=== PATIENT | female | born 1940 | race Hispanic/Latino ===

== ENCOUNTER 2018-05-13 11:17 | Observation (INO) | payer MEDICARE, MEDICAID ==
--- NOTE | 2018-05-13 11:39 | ED PDOC ---
Arrival/HPI - General Chief Complaint: Chest Pain Time Seen by Provider: 05/13/18 11:18 Historian: Patient - History of Present Illness Narrative History of Present Illness (Text): 05/13/18 11:43 77 year old female, whose past medical history includes hypertension, presents for evaluation of worsening chest pain for over the last week. Patient reports it is getting worse in the last 48 hours. She describes the pain as a midsternal pressure. Patient is reportedly due to see process controls technician as outpatient on Monday. Patient denies any fever, chills, shortness of breath, nausea, vomiting, diarrhea, urinary symptoms, back pain, neck pain, headache, dizziness, or any other complaints. PMD: Dr. Hank Angeles Time/Duration: 1 week Symptom Onset: Gradual Symptom Course: Worsening Activities at Onset: Light Context: Home Past Medical History - Provider Review Nursing Documentation Reviewed: Yes - Infectious Disease Hx of Infectious Diseases: None - Reproductive Menopause: Yes - Cardiac Hx Cardiac Disorders: Yes Hx Hypertension: Yes Hx Mitral Valve Prolapse: Yes - Pulmonary Hx Respiratory Disorders: No - Psychiatric Hx Substance Use: No - Anesthesia Hx Anesthesia: No Hx Anesthesia Reactions: No Family/Social History - Physician Review Nursing Documentation Reviewed: Yes Family/Social History: No Known Family HX Smoking Status: Unknown If Ever Smoked Hx Alcohol Use: No Hx Substance Use: No Allergies/Home Meds Allergies/Adverse Reactions: Allergies No Known Allergies Allergy (Unverified 05/13/18 11:31) Home Medications: Home Meds Medication Instructions Recorded Confirmed RX: Omeprazole 40 mg PO DAILY 05/13/18 05/13/18 amLODIPine [Norvasc] 10 mg PO DAILY 05/13/18 05/13/18 Review of Systems - Physician Review All systems were reviewed & negative as marked: Yes - Review of Systems Constitutional: absent: Fevers, Other (chills) Respiratory: absent: SOB Cardiovascular: Chest Pain Gastrointestinal: absent: Diarrhea, Nausea, Vomiting Genitourinary Female: absent: Dysuria, Frequency, Hematuria Musculoskeletal: absent: Back Pain, Neck Pain Neurological: absent: Headache, Dizziness Physical Exam Vital Signs Reviewed: Yes Vital Signs Temp Pulse Resp BP Pulse Ox 05/13/18 11:26 98.1 F 72 18 142/62 97 Temperature: Afebrile Blood Pressure: Normal Pulse: Regular Respiratory Rate: Normal Appearance: Positive for: Well-Appearing, Non-Toxic, Comfortable Pain Distress: None Mental Status: Positive for: Alert and Oriented X 3 - Systems Exam Head: Present: Atraumatic, Normocephalic Pupils: Present: PERRL Extroacular Muscles: Present: EOMI Conjunctiva: Present: Normal Mouth: Present: Moist Mucous Membranes Neck: Present: Normal Range of Motion Respiratory/Chest: Present: Clear to Auscultation, Good Air Exchange. No: Respiratory Distress, Accessory Muscle Use Cardiovascular: Present: Regular Rate and Rhythm, Normal S1, S2. No: Murmurs Abdomen: No: Tenderness, Distention, Peritoneal Signs Back: Present: Normal Inspection Upper Extremity: Present: Normal Inspection. No: Cyanosis, Edema Lower Extremity: Present: Normal Inspection. No: Edema Neurological: Present: GCS=15, CN II-XII Intact, Speech Normal Skin: Present: Warm, Dry, Normal Color. No: Rashes Psychiatric: Present: Alert, Oriented x 3, Normal Insight, Normal Concentration Medical Decision Making ED Course and Treatment: 05/13/18 11:40 Impression: 77 year old female presents complaining of midsternal chest pain for the last week. cp ro acs Plan: -- EKG -- Labs -- Chest X-ray -- Aspirin -- Urinalysis -- Reassess and disposition Progress Notes: EKG shows NSR at 68 BPM with non-spefic ST/T wave changes. Interpreted by me. Chest X-ray Dictator : Vivienne Cunha MD Report Date : 05/13/2018 11:58:27 IMPRESSION: No active pulmonary disease. 05/13/18 15:[address] lundberg and dr faith bedside accepted to telel plan for stress test tommorow. - Lab Interpretations I have reviewed the lab results: Yes - RAD Interpretation Radiology Orders: 05/13/18 11:32 CHEST PORTABLE [RAD] Stat Cytology Technologist: Radiologist - EKG Interpretation Interpreted by ED Physician: Yes Type: 12 lead EKG - Medication Orders Current Medication Orders: Aspirin (Aspirin) 325 mg PO STAT STA Stop: 05/13/18 11:32 - Scribe Statement The provider has reviewed the documentation as recorded by the Jeff King Provider Scribe Attestation: All medical record entries made by the Jeff were at my direction and personally dictated by me. I have reviewed the chart and agree that the record accurately reflects my personal performance of the history, physical exam, medical decision making, and the department course for this patient. I have also personally directed, reviewed, and agree with the discharge instructions and disposition. Disposition/Present on Arrival - Present on Arrival Any Indicators Present on Arrival: No History of DVT/PE: No History of Uncontrolled Diabetes: No Urinary Catheter: No History of Decub. Ulcer: No History Surgical Site Infection Following: None - Disposition Have Diagnosis and Disposition been Completed?: Yes Diagnosis: Chest pain Disposition: HOSPITALIZED Disposition Time: 14:00 Patient Problems: Current Active Problems Problem Status Onset Chest pain Acute Condition: STABLE
[2018-05-13 11:55] LABS: BASO # 0.02 K/mm3 (0.0-2.0); BASO % 0.3 % (0.0-3.0); EOS # 0.2 (0.0-0.7); EOS % 3.1 % (1.5-5.0); HEMOGLOBIN 13.2 g/dL (12.0-16.0); LYMPH % 32.8 % (22.0-35.0); MEAN CORPUSCULAR HEMOGLOBIN 28.9 pg (25.0-35.0); MEAN CORPUSCULAR HGB CONC 32.8 g/dl (31.0-37.0); MEAN PLATELET VOLUME 9.6 fl (7.0-11.0); MONO # 0.4 (0.1-0.6); MONO % 6.3 % (1.0-6.0); RBC 4.57 10^6/uL (3.5-6.1); RED CELL DISTRIBUTION WIDTH 13.1 % (11.5-14.5); WHITE BLOOD COUNT 6.2 10^3/uL (4.5-11.0)
--- NOTE | 2018-05-13 12:02 | RAD ---
Date of service: 05/13/2018 HISTORY: Chest pain COMPARISON: No prior. FINDINGS: LUNGS: The lungs are well inflated and clear. PLEURA: No pleural effusions or pneumothorax. CARDIOVASCULAR: The heart is normal in size. There are aortic atherosclerotic calcifications present. OSSEOUS STRUCTURES: Within normal limits for the patient's age. VISUALIZED UPPER ABDOMEN: Normal. OTHER FINDINGS: None. IMPRESSION: No active pulmonary disease.
[2018-05-13 12:11] LABS: ALB/GLOB RATIO 1.5 (1.1-1.8); ALBUMIN 4.2 g/dL (3.0-4.8); AST/SGOT 29 U/L (14-36); BLOOD UREA NITROGEN 25 mg/dL (7-21); CALCIUM 9.5 mg/dL (8.4-10.5); GFR NON-AFRICAN AMERICAN > 60
[2018-05-13 12:12] LABS: PARTIAL THROMBOPLASTIN TIME 31.1 Seconds (26.9-38.3); PROTHROMBIN TIME 11.3 SECONDS (9.4-12.5)
[2018-05-13 12:14] LABS: ALT/SGPT < 6 U/L (7-56)
[2018-05-13] MEDS ORDERED: Enoxaparin 60 mg Syringe SC STA (12:28)
[2018-05-13 12:30] LABS: B-TYPE NATRIURETIC PEPTIDE 224 pg/mL (0-450); TROPONIN I < 0.01 ng/mL
[2018-05-13 13:06] LABS: PH,URINE 6.5 (4.7-8.0); URINE BILIRUBIN NEGATIVE (NEGATIVE); URINE BLOOD NEGATIVE (NEGATIVE); URINE GLUCOSE (UA) NEGATIVE (NEGATIVE); URINE LEUKOCYTE ESTERASE SMALL Leu/uL (NEGATIVE); URINE PROTEIN NEGATIVE mg/dL (<30 mg/dL); URINE UROBILINOGEN 0.2 E.U./dL (<1 E.U./dL)
[2018-05-13 13:07] LABS: URINE COLOR STRAW (YELLOW)
[2018-05-13 13:15] LABS: URINE APPEARANCE CLEAR (CLEAR); URINE BACTERIA MOD /hpf; URINE RBC 0 - 2 /hpf (0-2)
--- NOTE | 2018-05-13 20:38 | CARD ---
APPROVED REPORT Date of service: 05/13/2018 EKG Measurement Heart [id number] <Conclusion> Normal sinus rhythm Normal ECG
--- NOTE | 2018-05-13 21:33 | CON ---
DATE: 05/13/2018 CARDIOLOGY CONSULTATION REASON FOR CONSULTATION AND FOLLOWUP: Chest pain, unstable angina and rule out CAD. BRIEF CLINICAL HISTORY: This 77-year-old female with past medical history significant for hypertension and gastroesophageal reflux with pacing chest pain, pressure like, mother also doctor, Dr. Yecenia Rangel, psychiatrist, who brought here for cardiac evaluation. The patient denies any prior episode history of stress test 10 years ago. Denies any palpitation. Denies any diaphoresis. Denies any radiation to the pain. PAST MEDICAL HISTORY: Significant for hypertension and history of gastroesophageal reflux. CURRENT MEDICATION: The patient is on omeprazole 40 mg daily and amlodipine 10 mg p.o. daily. ALLERGIES: NO KNOWN DRUG ALLERGIES. PREVIOUS CARDIAC WORKUP: The patient had 10 years ago, stress test. PAST SURGICAL HISTORY: Significant for hysterectomy 6 years ago. REVIEW OF SYSTEMS: As per HPI. PHYSICAL EXAMINATION: VITAL SIGNS: Height of the patient 5 feet 7 inches, weight of the patient 149 pounds, body mass index 23 kg/m2, temperature afebrile, heart rate 72, and blood pressure 142/66. HEENT: PERRLA. Extraocular muscles intact. NECK: Supple. No carotid bruit or thyromegaly. CHEST: Clear to auscultation. HEART: S1 and S2 regular. ABDOMEN: Soft. EXTREMITIES: Clubbing and cyanosis, negative. LABORATORY DATA: Blood workup pending. EKG shows normal sinus, no acute ST-T changes noted. IMPRESSION: A 77-year-old female with past medical history significant for hypertension, gastroesophageal reflux, came in with unstable angina, and new onset of chest pain. RECOMMENDATIONS: Followup serial CPK and troponin, get echo, history of mitral valve prolapse. We will get echo to assess LV function. Followup serial CPK and troponin. If CPK and troponin remains flat, we consider stress test. If CPK and troponin is abnormal, consider cardiac catheterization. Discussed in length with Dr. Yecenia Rangel who is a psychiatrist and mother of Janna Abdullahi. We will follow and try to convince her to get admitted overnight for observation. The patient not willing and wanted to go home, but we will convince and if she agrees we will proceed stress test tomorrow if CPK and troponin remains negative, if positive consider cardiac catheterization. We will follow with you. I will add aspirin as well as we will add one dose of Lovenox. Dutch Renteria MD
[2018-05-13 21:35] LABS: TROPONIN I < 0.01 ng/mL
--- NOTE | 2018-05-13 22:30 | HP ---
DATE OF EXAM: 05/13/2018 HISTORY OF PRESENT ILLNESS: This 77-year-old female was examined in the [facility] ER on the afternoon of 05/13/2018. Present for the interview was her daughter, Dr. Yecenia Rangel, a Psychiatrist at [facility]. This yg 77-year-old female was brought to the ER complaining of worsening chest discomfort over the past week. She describes it as midsternal in nature. She was seen by her clerk manager in [place] on Monday of this week prior and is followed by her clerk manager for mitral valve prolapse and chronic hypertension. According to the patient and daughter, the patient takes Norvasc 10 mg p.o. daily as well as Prilosec 40 mg p.o. daily. She has a chronic history of hypothyroidism for which she is on Synthroid 25 mcg p.o. daily. The patient describes the chest discomfort as tightness in her chest and a squeezing sensation and is being admitted for further evaluation of the above. ALLERGIES: SHE HAS NO KNOWN ALLERGIES TO MEDICATIONS. REVIEW OF SYSTEMS: CONSTITUTIONAL REVIEW: No fever, no chills. HEAD: No headache or seizures. EYES: No change in visual acuity. EARS: No hearing loss. THROAT: No swallowing difficulty. NECK: No stiffness. CARDIAC REVIEW: As per HPI, chronic hypertension and mitral valve prolapse. No knowledge of heart attack in the past and she states she did have a stress test approximately 1 year ago that was unremarkable. GI: No hematemesis. No melena. : No dysuria. SKIN: No rash. VASCULAR: No claudication. PSYCHOLOGICAL: No depression. NEUROLOGICAL: No knowledge of stroke. SOCIAL HISTORY: She is a nondrinker, nonsmoker, non IV drug misuser. FAMILY HISTORY: Noncontributory. PHYSICAL EXAMINATION: VITAL SIGNS: Temperature 98.3, respirations 14, pulse 62, blood pressure 140/66, and pulse ox 97% on room air. HEENT: Head is normocephalic and atraumatic. Eyes; no icterus. Ears are clear. Throat is noninjected. NECK: Supple. HEART: Regular S1 and S2. No pathological rubs, murmurs or gallops. LUNGS: Clear. ABDOMEN: Soft. EXTREMITIES: No edema. SKIN: Without rash. NEUROLOGIC: Intact. PSYCHOLOGICAL: Alert and oriented x3. VASCULAR: Legs warm to touch. LABORATORY DATA: Sodium 139, K of 3.9, chloride 102, bicarb 27, BUN 25, creatinine 0.6, random blood sugar 132, and calcium 9.5. Magnesium 1.9, bilirubin 0.7, AST 29, ALT 6, and alk phos 53. CPK 27. Troponin less than 0.01. BNP 224. White count 6200, hemoglobin 13.2, hematocrit 40.2, and platelets 248,000. PT/INR 1.0. PTT 31.1. Urinalysis showed moderate bacteria, no protein, no blood. Chest x-ray was reviewed. It showed lungs well inflated and clear. No pleural effusions, no pneumothorax, no infiltrate, no congestive heart failure, no active pulmonary disease. EKG reportedly showed normal sinus rhythm. IMPRESSION: This is a 77-year-old female with chest pain, hypertension and mitral valve prolapse also with concerns of essential tremor and hypothyroidism. PLAN: The plan at present is to obtain TSH level, cardiac isoenzymes every 8 hours x2. She is scheduled for comprehensive metabolic panel, hemoglobin A1c, lipid level and magnesium and phosphorous level as well as a repeat CBC in the a.m. Urine culture has been sent. She will be started on Ecotrin 81 mg p.o. daily, metoprolol tartrate will be considered. As discussed with her daughter, she has had adverse responses to Norvasc in the past and they are amenable to trying metoprolol at this point in time. She will continue on Synthroid 25 mcg p.o. daily and Protonix 40 mg p.o. daily as well as Ecotrin 81 mg p.o. daily. A repeat echo and stress test has been requested for the a.m. and a heart-healthy diet is ordered as well. Based on clinical results, additional diagnostic workup and testing will be entertained. Greater than 75 minutes was spent in the care, ordering of labs and discussion of this patient with co-consultants emergency room physician and family. All questions were answered. Rayne Sorto MD [facility]
[2018-05-14] MEDS ORDERED: Levothyroxine 25 MCG TAB PO SCH (06:00)
[2018-05-14 06:12] VITALS: RESP 18; TEMP 97.8; O2SAT 95
[2018-05-14 07:09] LABS: BASO # 0.02 K/mm3 (0.0-2.0); BASO % 0.4 % (0.0-3.0); EOS # 0.2 (0.0-0.7); EOS % 4.3 % (1.5-5.0); HEMOGLOBIN 12.7 g/dL (12.0-16.0); LYMPH % 41.3 % (22.0-35.0); MEAN CELL VOLUME 86.7 fl (80.0-105.0); MEAN CORPUSCULAR HEMOGLOBIN 28.6 pg (25.0-35.0); MEAN PLATELET VOLUME 9.9 fl (7.0-11.0); MONO # 0.4 (0.1-0.6); MONO % 7.9 % (1.0-6.0); RBC 4.44 10^6/uL (3.5-6.1); RED CELL DISTRIBUTION WIDTH 13.1 % (11.5-14.5); WHITE BLOOD COUNT 4.9 10^3/uL (4.5-11.0)
[2018-05-14 07:52] LABS: ALB/GLOB RATIO 1.4 (1.1-1.8); ALBUMIN 3.9 g/dL (3.0-4.8); BLOOD UREA NITROGEN 21 mg/dL (7-21); CALCIUM 8.8 mg/dL (8.4-10.5); GFR NON-AFRICAN AMERICAN > 60; HDL CHOLESTEROL 46 mg/dL (29-60)
[2018-05-14 07:55] LABS: ALT/SGPT 15 U/L (7-56); AST/SGOT 32 U/L (14-36)
[2018-05-14 08:02] LABS: LDL CHOLESTEROL 116 mg/dL (0-129)
[2018-05-14] MEDS ORDERED: Pantoprazole 40 mg EC Tab PO SCH (10:00)
[2018-05-14 13:56] VITALS: BP 120/80; PULSE 60
--- NOTE | 2018-05-14 15:29 | CARD ---
APPROVED REPORT Date of service: 05/14/2018 EXAM: Two-dimensional and M-mode echocardiogram with Doppler and color Doppler. INDICATION Chest Pain 2D DIMENSIONS Left Atrium (2D)3.5 (1.6-4.0cm)IVSd1.1 (0.7-1.1cm) LVDd4.9 (3.9-5.9cm)PWd1.0 (0.7-1.1cm) LVDs2.9 (2.5-4.0cm)FS (%) 40.4 % LVEF (%)71.0 (>50%) M-Mode DIMENSIONS Aortic Root3.10 (2.2-3.7cm)Aortic Cusp Exc.1.70 (1.5-2.0cm) Aortic Valve AoV Peak Wpswpeam634.0cm/Rodri Peak GR.9mmHg Mitral Valve MV E Lfwsbhal15.5cm/sMV A Nfgmbikr47.9cm/sE/A ratio0.6 TDI Lateral E' Peak V6.53cm/sMedial E' Peak V6.04cm/sE/Lateral E'9.3 E/Medial E'10.0 Pulmonary Valve PV Peak Rjphifxk149.0cm/sPV Peak Grad.5mmHg Tricuspid Valve TR Peak Cemulocz995ql/sRAP [id number] Peak Gr.25mmHg [id number] LEFT VENTRICLE The left ventricle is normal size. There is normal left ventricular wall thickness. The left ventricular function is normal.EF-65-70% There is normal LV segmental wall motion. Transmitral Doppler flow pattern is Grade III-reversible restrictive diastolic dysfunction. No left ventricle thrombus noted on this study. There is no ventricular septal defect visualized. There is no left ventricular aneurysm. There is no mass noted in the left ventricle. RIGHT VENTRICLE The right ventricle is normal size. There is normal right ventricular wall thickness. The right ventricular systolic function is normal. AORTIC VALVE The aortic valve is normal in structure. Trivial AR. There is no aortic valvular stenosis. There is no aortic valvular vegetation. MITRAL VALVE The mitral valve is thickened but opens well. Mitral regurgitation is trace to mild. There is no mitral valve stenosis. There is no evidence of mitral valve prolapse. TRICUSPID VALVE The tricuspid valve leaflets are thickened , but open well. There is trace tricuspid regurgitation.RVSP-35 mmof hg. There is no tricuspid valve stenosis. There is no tricuspid valve prolapse or vegetation. PULMONIC VALVE The pulmonic valve is borderline thickened. There is trace pulmonic valvular regurgitation. There is no pulmonic valvular stenosis. GREAT VESSELS The aortic root is normal in size. The ascending aorta is normal in size. The pulmonary artery is normal. The IVC is normal in size and collapses >50% with inspiration. PERICARDIAL EFFUSION There is no pleural effusion. There is no pericardial effusion. <Conclusion> Normal Chamber Size. EF-65-70% Trivial AR. Mitral regurgitation is trace to mild. There is trace tricuspid regurgitation.RVSP-35 mmof hg. The IVC is normal in size and collapses >50% with inspiration. There is no pericardial effusion.
--- NOTE | 2018-05-14 16:36 | PN ---
DATE: 05/14/2018 REASON FOR CONSULTATION: Followup chest pain, cardiac evaluation. SUBJECTIVE: The patient denies chest pain, shortness of breath, or any palpitation. PHYSICAL EXAMINATION: GENERAL: Not in apparent distress. VITAL SIGNS: Temperature afebrile, heart rate 56, blood pressure 102/51. HEENT: PERRLA. Extraocular muscles intact. NECK: Supple. No carotid bruits or thyromegaly. CHEST: Clear to auscultation. HEART: S1 and S2 regular. ABDOMEN: Soft. EXTREMITIES: Clubbing and cyanosis negative. LABORATORY DATA: Blood workup as follows; WBC 4.9, hemoglobin 12.7, hematocrit 38.5, and platelet count 241. Chemistries shows sodium 139, potassium 4, chloride 105, bicarbonate 26, anion gap of 11, BUN 21, creatinine 0.5. TSH 4.5. Total cholesterol 215, LDL 116, and HDL 46. Troponin remains negative. IMPRESSION AND PLAN: A 77-year-old female with past medical history significant for hypothyroidism, hypertension and gastroesophageal reflux disease, chest pain. Workup negative. No evidence of acute myocardial infarction. Mild hyperlipidemia. We will continue levothyroxine. We will start low dose of statin and we will do stress test and echo today. Further recommendation after the stress test. We will follow with you. Thank you Dr. Sorto for providing us the opportunity in taking care of the patient, Janna Abdullahi. Dutch Renteria MD
--- NOTE | 2018-05-14 16:38 | PN ---
DATE: 05/14/2018 SUBJECTIVE: This 77-year-old female remains hospitalized at the [facility] on the morning of 05/14/2018. She is in the process of completing echocardiography and stress testing and has had medication adjusted for presentation with chest pain. She remains in a normal sinus rhythm on the electrical instrument repairer. OBJECTIVE: VITAL SIGNS: Temperature is 97.8, respirations 18, pulse 56 and blood pressure 108/51 with a pulse ox of 95% on room air. Physical exam is unchanged. LABORATORY DATA: White count 4900, hemoglobin 12.7, hematocrit 38.5, platelets 241,000. PT/INR 1, PTT 31.1. Sodium 139, K 4, chloride 105, bicarb 27, BUN 21, creatinine 0.5, random blood sugar 83. Phosphorous 3.1, magnesium 2.1. Bilirubin 0.9, AST 32, ALT 15 and alk phos 52. Troponin was less than 0.01 x2. Cholesterol 215, triglycerides 144, LDL 116, HDL 46. TSH 4.58 normal. Urinalysis unremarkable. IMPRESSION AND PLAN: This 77-year-old female with history of mitral valve prolapse, chronic hypertension, now admitted with chest pain and noted to have mild hyperlipidemia. At present urine cultures and hemoglobin A1c values are pending. She is scheduled for echo, stress testing. Will continue on heart-healthy diet and based on clinical progress, additional diagnostic workup and testing will be entertained. Rayne Sorto MD
--- NOTE | 2018-05-14 19:56 | CARD ---
APPROVED REPORT Date of service: 05/14/2018 Protocol: LORRAINE Test Type: Sestamibi Stress Test Attending Physician: Dr. Dutch Taylor Referring Physician: Dr. Rayne Sorto Test Indications: Chest Pain, R/O CAD Height:5 ft 7 in Weight:149lbs Medications: Aspirin, Synthroid, Lopressor, Protonix Medical History: 77 YEAR old female with ahistory of HTN, Mitral Valve Prolapse Target HR: 143 bpm Resting ECG: Sinus Bradycardia 59/min. Resting Heart Rate: 60 bpm Resting Blood Pressure: 120/80mmHg Submaximum (85%): 122 bpm POST EXERCISE Reason for Termination: Fatigue Target HR: No Max HR: 125 bpm 87% of Maximum Predicted HR: 143 bpm Exercise duration: 03:16 min:sec, 2 Stage Exercise capacity: 4.9METs Max Blood Pressure: 140/88mmHg Blood Pressure response to exercise: normal resting BP - appropriate response Heart Rate response to exercise: appropriate Chest Pain: No, none Angina index: 0 Arrhythmia: No, none ST Change: No, none Deviation: 0 mm INTERPRETATION Stress EKG Conclusion: REGULAR STRESS TEST STOPPED AFTER 3 MINUTES AND16 SECONDS OF LORRAINE PROTOCOL DUE TO FATIGUE. PATIENT ACHIEVED 81% OF PREDICTED HEART RATE. NO CHEST PAIN. NO ST-T CHANGES. NUCEAR SCAN REPORT PENDING. Signed by Dutch Taylor Electronically Approved: 05/14/2018 11:37:02 EXAM: Myocardial Perfusion REST/STRESS Stress Test Type: Exercise Treadmill Imaging Protocol The imaging protocol used to acquire images was Rest Tc-99m/stress Tc-99m 1 day Rest Spect myocardial perfusion imaging was performed in supine position 60 minutes following the injection of 10.3 mCi of Tc-99 Myoview. At peak stress, the patient was injected intravenously with 30.2mCi of Tc-99 tetrofosmin after an exercise time of 3 minutes and 16 seconds. Gated Stress Spect was performed 65 minutes after intravenous Tc-99 Myoview injection. The images were gated to evaluate regional wall motion and calculate ventricular ejection fraction.Images were reconstructed using backfilter projection method in short horizontal and verticle long axis. Spect slices were generated. LV Perfusion The quality of the study is good. The left ventricle is normal in size. The right ventricle is unremarkable. The lung uptake is normal. The distribution of tracer reveals mildly to moderately decreased perfusion involving distal anteroseptal and apical nfef on the stress study. The remainder of the LV myocardium is unremarkable. The rest myocardial perfusion study shows partial improvement of the defects. Wall Motion Wall motion study shows good contractility of the left ventricle. LVEF = 64%. Conclusion 1. Probably abnormal SPECT myocardial perfusion study. 2. Partially reverislble, distal anteroseptal and apical defects are suspicious of ischemia. 3. Normal gated wall motion of the left ventricle.
== END 2018-05-14 18:36 | disposition home or self-care (01) ==
LOC: ED 11:17 → ERH 12:41 → 2RSO 15:05
PROVIDERS: ADMIT Internal Medicine; ATTEND Internal Medicine
DX: I20.0 Unstable angina (principal); K21.9 Gastro-esophageal reflux disease without esophagitis; I10 Essential (primary) hypertension; E78.5 Hyperlipidemia, unspecified; E03.9 Hypothyroidism, unspecified; I34.1 Nonrheumatic mitral (valve) prolapse; Z79.899 Other long term (current) drug therapy; Z90.710 Acquired absence of both cervix and uterus
CPT/HCPCS: 36415; 71045; 78452; 80053; 80061; 81001; 82550; 83036; 83615; 83735; 83880; 84100; 84443; 84484; 85025; 85610; 85730; 87086; 93005; 93017; 93306; 96372; 99285; A9502; G0378; J1650

== ENCOUNTER 2018-05-25 07:58 | Inpatient (IN) | payer MEDICARE, MEDICAID ==
[2018-05-25 08:12] VITALS: RESP 18; BMI 22.2
[2018-05-25] MEDS ORDERED: Nitroglycerin 2% Ointment Foilpak UD TOP STA (08:34)
[2018-05-25 08:45] LABS: BASO # 0.03 K/mm3 (0.0-2.0); BASO % 0.6 % (0.0-3.0); EOS # 0.2 (0.0-0.7); EOS % 3.7 % (1.5-5.0); HEMOGLOBIN 12.7 g/dL (12.0-16.0); LYMPH # 1.4 (1.2-3.4); MEAN CELL VOLUME 87.8 fl (80.0-105.0); MEAN CORPUSCULAR HEMOGLOBIN 28.6 pg (25.0-35.0); MEAN CORPUSCULAR HGB CONC 32.6 g/dl (31.0-37.0); MEAN PLATELET VOLUME 9.5 fl (7.0-11.0); MONO # 0.3 (0.1-0.6); MONO % 6.8 % (1.0-6.0); RBC 4.44 10^6/uL (3.5-6.1); RED CELL DISTRIBUTION WIDTH 13.3 % (11.5-14.5); WHITE BLOOD COUNT 4.8 10^3/uL (4.5-11.0)
[2018-05-25 08:54] LABS: PARTIAL THROMBOPLASTIN TIME 30.6 Seconds (26.9-38.3); PROTHROMBIN TIME 11.3 SECONDS (9.4-12.5)
[2018-05-25] MEDS ORDERED: Aspirin 325 mg EC Tablets PO STA (09:00)
--- NOTE | 2018-05-25 09:19 | ED PDOC ---
Arrival/HPI - General Chief Complaint: Chest Pain Time Seen by Provider: 05/25/18 08:16 Historian: Patient, Family (daughter translated ) - History of Present Illness Narrative History of Present Illness (Text): 05/25/18 08:30 77 year old female, whose past medical history includes hypertension, presents to the emergency department accompanied by daughter complaining of intermittent chest pain for the past 2 weeks. Patient describes the pain as a midsternal chest pressure sensation. Dr. Renteria patient's kettle skimmer recommend patient to come to the ER to be evaluated and admitted for cardiac medical laboratory technical officer. Patient currently feels the chest pressure. Patient reports intermittent shortness breath at times, but any fever, chills, nausea, vomiting, diarrhea, urinary symptoms, back pain, neck pain, headache, dizziness, or any other complaints. PMD: Dr. Hank Angeles Time/Duration: Other (2 weeks) Symptom Onset: Gradual Symptom Course: Intermittent Activities at Onset: Light Context: Home Past Medical History - Provider Review Nursing Documentation Reviewed: Yes - Infectious Disease Hx of Infectious Diseases: None - Reproductive Menopause: Yes - Cardiac Hx Hypertension: Yes - Pulmonary Hx Respiratory Disorders: No - Musculoskeletal/Rheumatological Hx Falls: No - Psychiatric Hx Substance Use: No - Anesthesia Hx Anesthesia: No Hx Anesthesia Reactions: No Family/Social History - Physician Review Nursing Documentation Reviewed: Yes Family/Social History: No Known Family HX Smoking Status: unknown Hx Alcohol Use: No Hx Substance Use: No Allergies/Home Meds Allergies/Adverse Reactions: Allergies No Known Allergies Allergy (Unverified 05/25/18 08:12) Home Medications: Home Meds Medication Instructions Recorded Confirmed Omeprazole 40 mg PO DAILY 05/13/18 05/25/18 Aspirin [Adult Low Dose Aspirin EC] 81 mg PO DAILY 05/14/18 05/25/18 Atorvastatin [Lipitor] 10 mg PO DIN 05/14/18 05/25/18 Levothyroxine [Levoxyl] 0.025 mg PO DAILY 05/25/18 05/25/18 Propranolol [Propranolol HCl] 10 mg PO BID 05/25/18 05/25/18 amLODIPine [Norvasc] 10 mg PO DAILY 05/25/18 05/25/18 Review of Systems - Physician Review All systems were reviewed & negative as marked: Yes - Review of Systems Constitutional: absent: Fevers, Other (chills) Respiratory: SOB Cardiovascular: Chest Pain Gastrointestinal: absent: Diarrhea, Nausea, Vomiting Genitourinary Female: absent: Dysuria, Frequency, Hematuria Musculoskeletal: absent: Back Pain, Neck Pain Neurological: absent: Headache, Dizziness Physical Exam - Physical Exam Narrative Physical Exam (Text): Gen: VS reviewed, alert, well developed, well nourished, nontoxic, mild distress. ENT: normal pharynx. Eye: EOMI, PERRL. Neck: no JVD, supple, no adenopathy. CV: regular rate, regular rhythm, no rubs, no murmur, no gallops, S1, S2, pulses equal and strong. Pulm: no distress, clear to auscultation, no wheeze, no rhonchi, breath sounds equal, no rales. Abd: soft, nontender, no guarding, no rebound, no rigidity, normal bowel sounds. Ext: no edema. Skin: good color, no rash, no cyanosis. Psych: responds appropriately to questions, normal affect. Neuro: oriented x 3, CN2-12 intact grossly, motor intact, sensation intact. Vital Signs Reviewed: Yes Vital Signs Temp Pulse Resp BP Pulse Ox 05/25/18 08:09 98.2 F 58 L 18 127/68 98 05/25/18 07:58 98 F 58 L 18 127/68 98 Temperature: Afebrile Blood Pressure: Normal Pulse: Regular Respiratory Rate: Normal Medical Decision Making ED Course and Treatment: 05/25/18 08:30 Impression: 77 year old female presents complaining of intermittent midsternal chest pressure for the past 2 weeks associated with intermittent shortness of breath at times. Plan: -- Labs -- EKG -- Ecotrin, Nitro-bid 2%, Palvix, Tylenol -- Reassess and disposition Prior Visits: Notes and results from previous visits were reviewed. Progress Notes: 05/25/18 09:18 admit accepted by vianney aviles, patient to be admitted for recurrent chest pain/pressure, concern for angina. patient seen by dr. renteria in the ED and will take the patient to cardiac cath today for further testing. there is no significant clinical concern for aortic dissection or PE. patient admitted in stable condition to tele. 05/25/18 09:26 After nitro-bid 2% oint placed, patient reports chest pressure has significantly improved. - Lab Interpretations Lab Results: PT 11.3 SECONDS (9.4-12.5) 05/25/18 08:20 INR 1.00 05/25/18 08:20 APTT 30.6 Seconds (26.9-38.3) 05/25/18 08:20 Troponin I < 0.01 ng/mL 05/25/18 08:20 - EKG Interpretation EKG Interpretation (Text): 05/25/18 08:05 NSR @ 61 bpm, nml qrs, nml axis, no acute sttw abn. Interpreted by ED Physician: Yes Type: 12 lead EKG - Medication Orders Current Medication Orders: Acetaminophen (Tylenol 325mg Tab) 650 mg PO ONCE PRN PRN Reason: Headache Last Admin: 05/25/18 08:47 Dose: 650 mg MAR Pain/Vitals Document 05/25/18 08:47 NABEEL (Rec: 05/25/18 08:47 NABEEL [id number]) Pain Reassessment Is This A Pain ReAssessment? No Sleep Is patient sleeping during reassessment? No Presence of Pain Presence of Pain Yes Discontinued Medications Aspirin (Ecotrin) 325 mg PO STAT STA Stop: 05/25/18 09:01 Last Admin: 05/25/18 09:11 Dose: 325 mg Clopidogrel Bisulfate (Plavix) 300 mg PO STAT STA Stop: 05/25/18 09:00 Last Admin: 05/25/18 09:10 Dose: 300 mg Nitroglycerin (Nitro-Bid 2% Oint) 1 ea TOP STAT STA Stop: 05/25/18 08:35 Last Admin: 05/25/18 08:46 Dose: 1 ea - Scribe Statement The provider has reviewed the documentation as recorded by the Jeff King Provider Scribe Attestation: All medical record entries made by the Jeff were at my direction and personally dictated by me. I have reviewed the chart and agree that the record accurately reflects my personal performance of the history, physical exam, medical decision making, and the department course for this patient. I have also personally directed, reviewed, and agree with the discharge instructions and disposition. Disposition/Present on Arrival - Present on Arrival Any Indicators Present on Arrival: No History of DVT/PE: No History of Uncontrolled Diabetes: No Urinary Catheter: No History of Decub. Ulcer: No History Surgical Site Infection Following: None - Disposition Have Diagnosis and Disposition been Completed?: Yes Diagnosis: Angina at rest Disposition: HOSPITALIZED Disposition Time: 09:19 Patient Plan: Admission Patient Problems: Current Active Problems Problem Status Onset Angina at rest Acute Condition: STABLE
[2018-05-25 09:23] LABS: HDL CHOLESTEROL 53 mg/dL (29-60)
[2018-05-25 09:24] LABS: ALB/GLOB RATIO 1.4 (1.1-1.8); ALBUMIN 4.2 g/dL (3.0-4.8); ALT/SGPT 11 U/L (7-56); AST/SGOT 25 U/L (14-36); BLOOD UREA NITROGEN 19 mg/dL (7-21); CALCIUM 8.9 mg/dL (8.4-10.5); GFR NON-AFRICAN AMERICAN > 60
[2018-05-25 09:33] LABS: LDL CHOLESTEROL 96 mg/dL (0-129)
[2018-05-25] MEDS ORDERED: Pneumococcal 23-Valent Vaccine IM ONE (13:25)
[2018-05-25] MEDS ORDERED: Influenza Vaccine 60 mcg/0.5 mL SYR (4YR UP) IM ONE (13:25)
[2018-05-25] MEDS ORDERED: Lidocaine PF 2% (5 ml) Inj (For Cardiac Arrhy) ONE (13:48)
[2018-05-25] MEDS ORDERED: Verapamil 2 ML ONE (13:49)
[2018-05-25] MEDS ORDERED: Phenylephrine 10 mg/ml Inj ONE (13:49)
[2018-05-25] MEDS ORDERED: Nitroglycerin 50mg in D5W 50 MG/250 ML BOTTLE IV ONE (13:50)
[2018-05-25] MEDS ORDERED: Iodixanol 320 MG/ML 100 ML BOTTLE IV ONE (13:50)
[2018-05-25] MEDS ORDERED: Iodixanol 320 MG/ML 200 ML BOTTLE IV ONE (13:50)
[2018-05-25] MEDS ORDERED: Iohexol 350mgl/ml 50 ML ONE (13:50)
[2018-05-25] MEDS ORDERED: Midazolam 2 MG/2 ML VIAL ONE (15:54)
--- NOTE | 2018-05-25 16:35 | CON ---
DATE: 05/25/2018 CONSULT SERVICE: Cardiology. REASON FOR CONSULTATION: Followup acute coronary syndrome, chest pain, unstable angina, abnormal stress test in the past. BRIEF CLINICAL HISTORY: This is a 77-year-old female with past medical history significant for hypertension, gastroesophageal reflux, history of hypothyroidism, who admitted two weeks ago with complaint of chest pain. The patient underwent stress test is abnormal. The patient is resident [place] and plan was to follow with cut roll machine operator there. The patient this morning again the chest pain, so the daughter brought here. Daughter is physician, psychiatrist Dr. Yecenia Rangel. The patient says the chest pain like pressure sometime she feels that she has associated with shortness of breath and getting extra beats PAST MEDICAL HISTORY: Significant for hypertension, history of gastroesophageal reflux. CURRENT MEDICATIONS: The patient is taking amlodipine 10 mg daily, levothyroxine 0.25 mg daily, Propanol 10 mg p.o. b.i.d., omeprazole 40 mg daily, atorvastatin 10 mg daily and aspirin 81 mg daily. ALLERGIES: NO KNOWN DRUG ALLERGIES. RECENT CARDIAC WORKUP FOLLOWS: The patient has stress test in 05/14/2018, that revealed abnormal myocardial perfusion study, ejection fraction 64%, abnormal myocardial perfusion study partially reversible distal anteroseptal apical defects suspicious for ischemia. The patient has had echocardiography dated 05/14/2018, that shows ejection fraction 65% to 70%, trivial aortic regurgitation, trace to mild mitral regurgitation. SOCIAL HISTORY: Denies smoking. Denies any history of alcohol abuse. PHYSICAL EXAMINATION: GENERAL: As follows; height of the patient 5 feet 8 inches, weight of the patient 150 pounds, body mass index 22.3 kg/m2. VITAL SIGNS: Temperature afebrile, heart rate 58, blood pressure 127/68. HEENT: PERRLA. Extraocular muscles intact. NECK: Supple. No carotid bruits or thyromegaly. CHEST: Clear to auscultation. HEART: S1, S2 regular. ABDOMEN: Soft. EXTREMITIES: Clubbing and cyanosis, negative. LABORATORY DATA: EKG shows normal sinus with acute ST-T changes noted. IMPRESSION: A 77-year-old female with past medical history significant for gastroesophageal reflux, hypertension, hypothyroidism, admitted with chest pain, two weeks ago the patient has stress abnormal anteroseptal reversible ischemia, unstable angina, and acute coronary syndrome. RECOMMENDATIONS: We will keep n.p.o. after the breakfast. Cardiac catheterization tomorrow 3 p.m. Risks, benefits, and alternatives were discussed with the patient, the patient's daughter, Yecenia Rangel, who was physician, we will load with aspirin and Plavix. We will keep n.p.o. after the breakfast. Further recommendation after the breakfast. We will get basic blood workup including lipid profile and TSH. Thank you Dr. Sorto for providing us the opportunity in taking care of the patient, Bradly Saldivar. Dutch Renteria MD MTDCandie
[2018-05-25] MEDS ORDERED: Bacitracin 500 Units/gm Oint Foilpak UD TOP ONE (16:47)
[2018-05-25] MEDS ORDERED: MELATONIN 3 MG PO PRN (16:49)
[2018-05-25] MEDS ORDERED: Sodium Chloride 0.9% 1,000 ML IV SCH (17:00)
--- NOTE | 2018-05-25 17:19 | CARD ---
APPROVED REPORT Date of service: 05/25/2018 Procedure(s) performed: Left Heart Catheterization HISTORY The patient is a 77 year-old female with a history of : most recent EF: 64%. (EF Method: RADIONUCLIDE), hypertension , dyslipidemia , Admitted with Chest pain, who had an abnormal stress test two weeks ago. INDICATION The indication(s) include : positive stress test, unstable angina . CASE TECHNIQUE The patient was brought urgently to the Cardiac Catheterization Laboratory in a fasting state and was prepped and draped in a sterile manner. The left wrist was infiltrated with 2% Lidocaine subcutaneous anesthesia. A 6FR GLIDESTelegent SystemsTH ACCESS KIT sheath was inserted into the left radial artery without difficulty. Coronary angiography was performed using coronary diagnostic catheters. The left coronary system was accessed and visualized with a Diagnostic ,5F JL 4 CATH DXT 100 CM catheter. The right coronary system was accessed and visualized with a 5 Fr IM catheter. The left ventricle was accessed and visualized with a 5F JR 4 CATH DXT 100 CM catheter. Left ventricular/Aortic Valve gradient assessed on pullback. Left ventriculogram was performed in HOLDEN projection. The patient tolerated the procedure well and there were no complications associated with the procedure. Vessel Analysis The patient's coronary anatomy is right dominant. The left main coronary artery is a medium size vessel with intimal irregularities and without significant stenosis. The left main bifurcates to the left anterior descending and circumflex. The left anterior descending artery is a medium size vessel with diffuse calcification noted throughout this vessel and without significant stenosis. There is a 30% stenosis in the mid segment. The first diagonal branch is a large size vessel with diffuse calcification noted throughout this vessel and without significant stenosis. There is a 55% stenosis in the ostial segment. The second diagonal branch is a small size vessel with diffuse calcification noted throughout this vessel and without significant stenosis. The circumflex artery is a small size vessel with diffuse calcification noted throughout this vessel and without significant stenosis. The ramus intermedius artery is a medium size vessel with diffuse calcification noted throughout this vessel and without significant stenosis. The right coronary artery is a large size vessel with intimal irregularities and without significant stenosis. The right posterior descending artery is a large size vessel with intimal irregularities and without significant stenosis. The right posterolateral branch is a large size vessel . Left Ventricle The left ventricle is borderline enlarged in size with normal contractility. There was no cardiomyopathy. The left ventricular ejection fraction is estimated to be 55-60%. The left ventricular end diastolic pressure is 12-14 mmHg. There was no gradient across the aortic valve upon pullback. Conclusion Non Obstructive CAD ,limited to D1 55% ostial stenosis. Preserved LV Fx. EF-55-60%, EDP-12-14 mmof Hg. Recommendations Aggressive Medical Therapy Asa, statin, and Beta-michael. CC; Hank Allred MD
--- NOTE | 2018-05-25 17:21 | CPOSTOP ---
DATE: 05/25/2018 PHYSICIAN: Dutch Renteria MD TAX DIRECTOR: CARLOS Tyler. TYPE OF ANESTHESIA: Moderate conscious sedation, total 1 mg of Versed and 50 of fentanyl given. PRE-PROCEDURE DIAGNOSES: Unstable angina, acute coronary syndrome and history of abnormal stress test, admitted with chest pain. PROCEDURE PERFORMED: Left heart catheterization. FINDINGS: Nonobstructive coronary artery disease, limited only to diagonal 1, ostial, 50 to 55% stenosis. Preserved LV function. FINAL DIAGNOSIS: Nonobstructive coronary artery disease. POST PROCEDURE: The patient's condition is stable. VASCULAR ACCESS SITE: Left radial. CLOSURE DEVICE: TR Band. TOTAL RADIATION DOSE: 5379.94 milligray unit. TOTAL FLUORO TIME: 6.4 minutes. Dutch Renteria MD
[2018-05-25 18:27] VITALS: TEMP 98.2; O2SAT 95
--- NOTE | 2018-05-25 18:34 | CARD ---
APPROVED REPORT Date of service: 05/25/2018 EKG Measurement Heart [id number] <Conclusion> Normal sinus rhythm Normal ECG
[2018-05-25] MEDS ORDERED: Bacitracin 500 Units/gm Oint Foilpak UD ONE (19:32)
--- NOTE | 2018-05-25 19:50 | HP ---
DATE OF EXAM: 05/25/2018 HISTORY OF PRESENT ILLNESS: This 77-year-old female was examined in the [facility] ER, Bed #8 on the morning of 05/25/2018, present for the interview with her daughter Yecenia. The patient is a 77-year-old female who was recently evaluated for typical chest pain and found to have an abnormal stress test. This was reviewed with the patient and her daughter at her bedside. Stress test dated 05/14/2018, showed good contractility and normal wall motion with an ejection fraction of 64%; however, there was a partially reversible old distal anterior septal and apical defect noted on the stress test suspicious of ischemia. The patient at present is complaining of substernal chest discomfort and is being admitted today for cardiac catheterization of the above finding. PAST MEDICAL HISTORY: The patient's past medical history is also significant for hypothyroidism, chronic hypertension and hyperlipidemia. MEDICATIONS: Her outpatient medications include Synthroid 25 mcg p.o. daily, propranolol 10 mg p.o. b.i.d., Norvasc 10 mg p.o. daily, Prilosec 40 mg p.o. daily, Lipitor 10 mg p.o. daily, and Ecotrin 81 mg p.o. daily. ALLERGIES: THE PATIENT HAS NO KNOWN ALLERGIES TO MEDICATION. SOCIAL HISTORY: She is a nondrinker, nonsmoker, non IV drug misuser. She is a retired homemaker. FAMILY HISTORY: Noncontributory. REVIEW OF SYSTEMS: Constitutional: No reports of fever or chills. Head: No headache or seizure. Eyes: No change in visual acuity. Ear: No hearing loss. Throat: No swallowing difficulty. Neck: No stiffness. Cardiac: Review as per HPI with chronic hypertension and feeling of palpitation. Pulmonary: No cough. No hemoptysis. Gastrointestinal: No hematemesis. No melena. Genitourinary: No dysuria. Skin: No rash. Vascular: No claudication. Endocrinologic: Hypothyroidism and hyperlipidemia. Neurological: No knowledge of stroke. PHYSICAL EXAMINATION VITAL SIGNS: At the present time, temperature was 97.8, respirations 18, pulse 56, and blood pressure 120/80 with a pulse ox of 95% on room air. HEENT: Head; normocephalic, atraumatic. Eyes; no icterus. Ears; clear. Throat; noninjected. NECK: Supple. CARDIOPULMONARY: Heart with S1, S2. LUNGS: Clear. ABDOMEN: Soft. EXTREMITIES: No edema. SKIN: Without rash. NEUROLOGICAL: Intact. PSYCHOLOGICAL: Alert. VASCULAR: Legs warm to touch. LABORATORY DATA: White count 4800, hemoglobin 12.7, hematocrit 39.0, platelets 223,000. PT/INR 1.0, PTT 30.6. Sodium 137, potassium 4.0, chloride 106, bicarb 25, BUN 19, creatinine 0.5, random blood sugar 88. Calcium 8.9. Bilirubin 0.8, AST 25, ALT 11, and alk phos 52. Troponin less than 0.01. Cholesterol 200, triglycerides 136, LDL 96, HDL 53. TSH 2.81 normal. Echocardiography dated 05/14/2018 was reviewed. It shows normal chamber size with an ejection fraction of 65%, trivial aortic regurgitation, trace mitral regurgitation, trace tricuspid regurgitation. No pericardial effusion. IMPRESSION: A 77-year-old female with unstable angina, abnormal stress test and comorbidities of hyperlipidemia, peptic ulcer disease with gastroesophageal reflux disease, hypertension, hypothyroidism and history of palpitation. PLAN: The plan is to admit this patient to the cardiac unit. She will be prescribed breakfast and then made n.p.o. except for medication for elective cardiac cath with Dr. Dutch Renteria later this day. The daughter is anxious for discharge to home if everything is cleared by Dr. Renteria for later this evening. This will be reviewed with cardiac nurses and Dr. Renteria. For the time being, she will continue on Ecotrin 81 mg p.o. daily, Lipitor 10 mg p.o. daily, Prilosec 40 mg p.o. daily, Norvasc 10 mg p.o. daily, propranolol 10 mg p.o. b.i.d., and Synthroid 25 mcg p.o. daily which the patient reportedly has already taken. Based on clinical results, additional diagnostic workup and testing will be entertained. All of the above was reviewed at the bedside with the patient and her daughter present. I have also reviewed this case in detail with Dr. Dutch Renteria and Dr. Frank Messina, the emergency room physician at the [facility] this morning. Rayne Sorto MD [facility] # [id number]
[2018-05-25 21:30] VITALS: BP 121/57; PULSE 65
[2018-05-26] MEDS ORDERED: Pantoprazole 40 mg EC Tab PO SCH (07:30)
[2018-05-26] MEDS ORDERED: Levothyroxine 25 MCG TAB PO SCH (10:00)
== END 2018-05-25 21:51 | disposition home or self-care (01) | DRG 287 ==
LOC: ED 07:58 → ERH 09:19 → 2RSO 11:24
PROVIDERS: ADMIT Internal Medicine; ATTEND Internal Medicine
PROC: 4A023N7 Measurement of Cardiac Sampling and Pressure, Left Heart, Percutaneous Approach (ICD-10-PCS; principal; 2018-05-25)
PROC: B2151ZZ Fluoroscopy of Left Heart using Low Osmolar Contrast (ICD-10-PCS; 2018-05-25)
PROC: B2111ZZ Fluoroscopy of Multiple Coronary Arteries using Low Osmolar Contrast (ICD-10-PCS; 2018-05-25)
DX: I25.110 Atherosclerotic heart disease of native coronary artery with unstable angina pectoris (principal); I10 Essential (primary) hypertension; I08.3 Combined rheumatic disorders of mitral, aortic and tricuspid valves; E03.9 Hypothyroidism, unspecified; E78.5 Hyperlipidemia, unspecified; K21.9 Gastro-esophageal reflux disease without esophagitis; K27.9 Peptic ulcer, site unspecified, unspecified as acute or chronic, without hemorrhage or perforation; Z79.82 Long term (current) use of aspirin